=== PATIENT | male | born 1995 | race African-American/Black ===

== ENCOUNTER 2020-06-01 10:44 | Emergency (ER) | payer OTHER ==
[~2020-06-01] VITALS: Ht 182.9 cm; Wt 81.7 kg
[~2020-06-01 10:44] MED LIST: IBUPROFEN 800800 M1 PO; ROBAXIN 750 MG750 M1 PO
[2020-06-01 10:55] VITALS: BP 138/78
[2020-06-01] MEDS ORDERED: SUPRAX400 M1 PO ×2 (12:14→12:16)
[2020-06-01] MEDS ORDERED: AZITHROMYCIN250 MG PO ×2 (12:14→12:16)
== END 2020-06-01 12:34 | disposition home or self-care (01) ==
LOC: M.ERS 10:44
DX: R30.0 Dysuria (principal); J45.909 Unspecified asthma, uncomplicated